=== PATIENT | male | born 1980 | race Asian ===

== ENCOUNTER 2018-01-30 18:37 | Outpatient (CLI) | payer OTHER, BC | END 2018-01-30 18:38 | disposition critical access hospital (66) | LOC: EMS 18:37 | PROVIDERS: ATTEND Surgery | DX: M54.9 Dorsalgia, unspecified (principal); R42 Dizziness and giddiness; V43.63XA Car passenger injured in collision with pick-up truck in traffic accident, initial encounter; Y92.414 Local residential or business street as the place of occurrence of the external cause | CPT/HCPCS: A0425; A0429 ==